=== PATIENT | female | born 1965 | race Caucasian/White ===

== ENCOUNTER → 2017-12-22 | Outpatient (CLI) | payer OTHER ==
--- NOTE | 2017-12-23 19:12 | US ---
EXAMINATION TYPE: US thyroid st tissue head/neck DATE OF EXAM: 12/22/2017 COMPARISON: NONE CLINICAL HISTORY: E89.0 POSTOPERATIVE HYPOTHYROIDISM. History of thyroid CA, patient states she is un sure if she had partial or full thyroidectomy, on thyroid meds GLAND SIZE: Right Lobe: 3.8 x 1.2 x 1.1 cm Overall Parenchyma: heterogenous Left Lobe: surgically absent Isthmus Thickness: 0.3 cm NODULES RIGHT: # of nodules measured on right: 2 1. 1.1 X 0.9 x 0.7 cm hypoechoic solid nodule at the lower pole with well-defined margins. This nod ule is taller than wide and shows intranodular vascularity. Prior size: no previous 2. 0.5 X 0.6 x 0.4 cm hypoechoic solid nodule at the mid pole with well-defined margins. This nodule is taller than wide and shows intranodular vascularity. Prior size: no previous LEFT: surgically absent ISTHMUS: # of nodules measured in the isthmus: 0 Bilateral neck scanned, no evidence of lymphadenopathy. IMPRESSION: 1. 1 cm thyroid nodule right lobe thyroid. Additional subcentimeter nodule is within the right lobe t hyroid. 2. Status post left thyroid lobectomy.
== END | disposition home or self-care (01) ==
LOC: RADUSWWP 15:33
PROVIDERS: ATTEND Internal Medicine
DX: E04.2 Nontoxic multinodular goiter (principal); Z98.890 Other specified postprocedural states
CPT/HCPCS: 76536